=== PATIENT | male | born 1955 ===

== ENCOUNTER 2018-04-19 07:04 | Day surgery (SDC) | payer OTHER ==
[2018-04-19 07:36] VITALS: BMI 28.0
[2018-04-19] MEDS ORDERED: Lactated Ringer's 500 ML IV ONE ×2 (07:38)
[2018-04-19 07:57] VITALS: O2SAT 97
[2018-04-19] MEDS ORDERED: Propofol 10 mg/ml Inj (20 ML) ONE (09:17)
[2018-04-19 10:10] VITALS: TEMP 96.8
[2018-04-19 10:56] VITALS: RESP 18
[2018-04-19 15:01] VITALS: BP 106/58; PULSE 81
== END 2018-04-19 10:52 | disposition home or self-care (01) ==
LOC: H.ENDO 07:04
PROVIDERS: ATTEND Internal Medicine Gastroenterology
DX: Z12.11 Encounter for screening for malignant neoplasm of colon (principal); M19.90 Unspecified osteoarthritis, unspecified site; G47.30 Sleep apnea, unspecified; D12.6 Benign neoplasm of colon, unspecified; K64.8 Other hemorrhoids; K29.50 Unspecified chronic gastritis without bleeding; K20.9 Esophagitis, unspecified; K44.9 Diaphragmatic hernia without obstruction or gangrene; K21.0 Gastro-esophageal reflux disease with esophagitis; K31.89 Other diseases of stomach and duodenum
CPT/HCPCS: 43239; 45380; 45381; 88305; J2001; J2704; J7120